=== PATIENT | female | born 1965 ===

== ENCOUNTER 2016-12-19 08:46 | Emergency (ER) | payer OTHER, BC ==
[2016-12-19 09:01] VITALS: TEMP 98.8
--- NOTE | 2016-12-19 11:05 | C.PDOC ---
History Of Present Illness Pt injured her left shoulder while picking up something heavy at work yesterday. Time Seen by Provider: 12/19/16 09:15 Chief Complaint (Nursing): Upper Extremity Problem/Injury History Per: Patient Onset/Duration Of Symptoms: Days (1), Sudden Onset Current Symptoms Are (Timing): Still Present Quality: "Pain" Severity: Moderate Exacerbating Factor(s): Movement Additional History Per: Prior Records Past Medical History Reviewed: Historical Data, Nursing Documentation, Vital Signs Vital Signs: Last Vital Signs Temp 98.8 F 12/19/16 08:57 Pulse 66 12/19/16 08:57 Resp 18 12/19/16 08:57 BP 113/73 12/19/16 08:57 Pulse Ox 100 12/19/16 08:57 - Medical History PMH: Depression, HTN, Hypercholesterolemia, Hypothyroidism - [facility] Procedures APPLICATION OF SPLINT (07/17/01) Family History: States: Unknown Family Hx - Social History Hx Tobacco Use: No Hx Alcohol Use: No Hx Substance Use: No - Immunization History Hx Tetanus Toxoid Vaccination: No Hx Influenza Vaccination: No Hx Pneumococcal Vaccination: No Review Of Systems Except As Marked, All Systems Reviewed And Found Negative. Constitutional: Negative for: Fever, Weakness Cardiovascular: Negative for: Chest Pain Respiratory: Negative for: Shortness of Breath Gastrointestinal: Negative for: Vomiting, Abdominal Pain Musculoskeletal: Positive for: Shoulder Pain (left), Arm Pain (left). Negative for: Neck Pain Skin: Negative for: Rash, Bruising Neurological: Negative for: Weakness, Numbness, Seizures, Altered Mental Status Physical Exam - Physical Exam Appears: Non-toxic, No Acute Distress Skin: Normal Color, Warm, Dry, No Rash Head: Atraumatic, Normacephalic Eye(s): bilateral: PERRL, EOMI Neck: Normal ROM, No Midline Cervical Tenderness, No Step Off Deformity, Supple Chest: Symmetrical, No Deformity Cardiovascular: Rhythm Regular Respiratory: Normal Breath Sounds, No Accessory Muscle Use Gastrointestinal/Abdominal: Soft, No Tenderness Back: No CVA Tenderness Extremity: Tenderness (nonspecific left shoulder area), No Deformity, No Swelling Extremity: Left: Limited ROM To Joint (Shoulder, due to pain.), Bilateral: Normal Color And Temperature Pulses: Left Radial: Normal Neurological/Psych: Oriented x3, Normal Motor, Normal Sensation ED Course And Treatment O2 Sat by Pulse Oximetry: 100 Pulse Ox Interpretation: Normal - Other Rad Left shoulder x-rays X-Ray: Interpreted by Me, Viewed By Me Interpretation: No acute fx or dislocation. Reassessment Condition: Improved Disposition Counseled Patient/Family Regarding: Studies Performed, Diagnosis, Need For Followup, Rx Given - Disposition Referrals: Yony Woo [Medical Doctor] - Disposition: HOME/ ROUTINE Disposition Time: 11:07 Condition: IMPROVED Additional Instructions: Follow up with your doctor and/or with an orthopedic doctor for further evaluation and treatment. Return to the ER if you develop redness, swelling, weakness, numbness, worsening or symptoms or if you have any other concerns. Prescriptions: Naproxen [Naprosyn] 1 tab PO BID PRN #20 tab PRN Reason: Pain Instructions: Shoulder Sprain (ED) Print Language: [email or web address] - Clinical Impression Clinical Impression: Sprain of left shoulder
[2016-12-19 11:16] VITALS: BP 125/78; PULSE 78; RESP 16; O2SAT 98
--- NOTE | 2016-12-19 11:20 | RAD ---
PROCEDURE: Radiographs of the Left Shoulder HISTORY: Pain s/p lifting COMPARISON: None available. FINDINGS: BONES: No acute displaced fracture. The distal clavicle and underlying ribs appear intact. JOINTS: No acute dislocation. SOFT TISSUES: Soft tissues appear unremarkable. No evidence of radiopaque foreign body. IMPRESSION: No acute displaced fracture or dislocation evident. If symptoms persist or if there is continued clinical concern, x-ray follow-up in 7-10 days should be considered.
== END 2016-12-19 11:15 | disposition home or self-care (01) ==
LOC: C.ER 08:46
DX: S43.402A Unspecified sprain of left shoulder joint, initial encounter (principal); X58.XXXA Exposure to other specified factors, initial encounter; Y92.89 Other specified places as the place of occurrence of the external cause; Y99.0 Civilian activity done for income or pay
CPT/HCPCS: 73030; 96372; 99283; J1885